=== PATIENT | male | born 1975 | race Caucasian/White ===

== ENCOUNTER → 2018-09-01 | Outpatient (CLI) | payer BC ==
--- NOTE | 2018-09-01 16:30 | PCVCIMAG ---
APPROVED REPORT Study performed: 09/01/2018 10:06:00 Exam: Stress Echocardiogram Indication: Chest pain , Dyspnea , Palpitations Patient Location: Echo lab Stress Nurse: Apoorva Mulligan RN Status: routine Ht: 5 ft 11 in HR: 76 bpm BP: 124/84 mmHg Rhythm: NSR Procedure The patient underwent an Exercise Stress Test using the Hebert Protocol. Blood pressure, heart rate, and EKG were monitored. An Echocardiogram was performed by data acquisition technician in four stages in quad fashion. At peak stress, four selected images were obtained and placed side by side with resting images for comparison. Stress Test Details Stress Test: Exercise stress testing was performed using a Hebert protocol. HR Resting HR: 75 bpmMax Heart Rate (APMHR): 178 bpm Max HR Achieved: 176 bpmTarget HR (85% APMHR): 151 bpm % of APMHR: 98 Recovery HR: 103 bpm HR response to stress: Normal HR response to stress BP Resting BP: 124/84 mmHg Max BP: 178/86 mmHg Recovery BP: 142/74 mmHg BP response to stress: Normal blood pressure response to stress. ECG Resting ECG: Sinus Rhythm Stress ECG: Sinus Rhythm ST Change: Normal Arrhythmia: couplet PVCs at peak exertion Recovery ECG: Sinus Rhythm Recovery ST Change: Normal Recovery Arrhythmia: None Clinical Reason for Termination: Maximal effort Stress Symptoms: Dyspnea Exercise duration: 13 min 2 sec Highest Stage Achieved: Stage 4: 4.2 mph at 16% grade. Exercise capacity: 17.2 METs Overall Exercise Capacity for Age: Excellent Scale: Active Angina Score: None Pre-Stress Echo The resting Echocardiogram showed normal left ventricular contractility with an estimated Ejection Fraction of about >55%. Normal wall motion in all segments on baseline images. Post-Stress Echo The stress Echocardiogram showed normal left ventricular contractility with an estimated Ejection Fraction of about 65%. Normal augmentation of wall motion in all segments on post stress images. Clinical No clinical or ECG evidence for ischemia. Conclusion Clinical Response: Non-ischemic Exercise Capacity: Superior Stress ECG Response: Non-ischemic Stress Echo Images: Non-ischemic The left ventricle is normal in size and wall thickness in both the rest and stress images. Borderline concentric left ventricular hypertrophy. Aortic sinus of valsalva is dilated to 4.6 cm with normal aortic root size and no aortic insufficiency. Other Information Study Quality: Good <Conclusion> The left ventricle is normal in size and wall thickness in both the rest and stress images. Borderline concentric left ventricular hypertrophy. Aortic sinus of valsalva is dilated to 4.6 cm with normal aortic root size and no aortic insufficiency.
== END | disposition home or self-care (01) ==
LOC: PCVCIMAG 09:43
PROVIDERS: ATTEND Internal Medicine Cardiovascular Disease
DX: R07.9 Chest pain, unspecified (principal); R06.09 Other forms of dyspnea; R53.83 Other fatigue; R00.2 Palpitations
CPT/HCPCS: 93325; 93351